=== PATIENT | male | born 2000 | race Caucasian/White ===

== ENCOUNTER 2023-11-23 17:01 | Emergency (ER) | payer OTHER, SELFPAY ==
[2023-11-23 17:03] VITALS: BP 138/75; PULSE 92; RESP 16; TEMP 35.5; O2SAT 97; BMI 26.2
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
--- NOTE | 2023-11-23 17:46 | ED.RN ---
pts parents here in room at bedside. spo2 97% on ra. pt smiling and joking some with family. call light at bedside.
[2023-11-23 19:50] VITALS: BP 138/75; PULSE 61; RESP 13; TEMP 36.6; O2SAT 100
--- NOTE | 2023-11-23 19:51 | ED.RN ---
PT GIVEN WORK NOTE. PER DR. MCMANUS, PATIENT CAN RETURN TO WORK 11/24/23
== END 2023-11-23 19:52 | disposition home or self-care (01) ==
PROVIDERS: Emergency Provider Emergency Medicine; Visit Provider Emergency Medicine
DX: S09.90XA Unspecified injury of head, initial encounter (principal); S16.1XXA Strain of muscle, fascia and tendon at neck level, initial encounter; V89.2XXA Person injured in unspecified motor-vehicle accident, traffic, initial encounter; S40.012A Contusion of left shoulder, initial encounter
CPT/HCPCS: 70450; 71045; 72125; 73030; 99283

== ENCOUNTER 2024-01-09 13:33 | Emergency (ER) | payer OTHER, SELFPAY ==
[2024-01-09 13:35] VITALS: BP 136/98; BP 146/94; PULSE 89; PULSE 92; RESP 16; RESP 18; TEMP 36.8; O2SAT 98; O2SAT 99; BMI 25.4
[2024-01-09] MEDS: Lidocaine 1% (20 ml mdv) 20 ML Vial INFILT (14:19)
[2024-01-09] MEDS: Diphth,Pertuss(Acell),Tet Vac 0.5 ML Vial IM (14:19)
--- NOTE | 2024-01-09 14:30 | RAD_ITS ---
STUDY: X-RAY - RIGHT HAND REASON FOR EXAM: Male, 23 years old. Laceration of the index finger. TECHNIQUE: 3 view(s) of the hand. COMPARISON: None. FINDINGS: Normal radiocarpal articulation. Normal distal radioulnar joint. Normal visualized carpal bones. Normal carpal articulations Normal carpometacarpal articulation of the thumb. Normal second through fifth carpometacarpal joints. Normal metacarpi. Normal metacarpophalangeal joint of the thumb. Normal interphalangeal joint of the thumb. Normal proximal and distal phalanges of the thumb. Normal metacarpophalangeal joints of the second through fifth fingers. Normal proximal and distal interphalangeal joints of the second through fifth fingers. Normal phalanges of the second through fifth fingers. The soft tissue structures are unremarkable. RAD/Hand Min 3 Views IMPRESSION: Normal x-ray examination of the hand. Electronically Signed: Sanket Calderon MD at 14:44 EDT ,
[2024-01-09 14:35] VITALS: BP 134/88; PULSE 88; RESP 14; O2SAT 98
[2024-01-09 15:00] VITALS: BP 108/67; PULSE 88; RESP 14; O2SAT 99
--- NOTE | 2024-01-09 15:18 | EX.ED.UPPERE ---
HPI History of Present Illness Chief Complaint: Laceration Informant: patient Onset/Context/Timing Onset: Today Narrative Narrative: Patient present secondary to right thumb laceration. He was at work throwing away a car hubbard when it slipped and cut him in the right thumb. He is left-hand dominant. He is unsure of his last tetanus update. [facility] Medical History unable to obtain no medical history Home Medications ?Medication ?Instructions ?Recorded ?Last Taken ?Type NK 11/23/23 Unknown History Allergy/AdvReac Type Severity Reaction Status Date / Time cefdinir (From Omnicef) Allergy Mild Rash Verified 11/23/23 17:02 Family History Grandfather Diabetes Surgical History no surgical history Social History Smoking Status: Never smoker ROS ROS ED Constitutional Constitutional ED: Denies chills or fever(s) ENT ENT ED: Denies rhinorrhea Cardiovascular Cardiovascular: Denies chest pain Respiratory/Chest Respiratory/Chest: Denies cough Gastrointestinal Gastrointestinal: Denies abdominal pain, nausea or vomiting Musculoskeletal Musculoskeletal: Reports extremity pain; Denies back pain Integumentary Denies Abrasions or rash Neurologic Neurologic: Denies headache(s), paresthesias or weakness Psychiatric Psychiatric: Denies anxiety or depression Allergic/Immunologic Allergic/Immunologic ED: Denies lip swelling or urticaria EXAM Physical Exam Const Vital Signs: 01/09/24 13:35 01/09/24 13:35 01/09/24 14:35 Temperature 98.3 F Temperature Source Temporal Pulse Rate 92 89 88 Respiratory Rate 18 16 14 Blood Pressure 146/94 H 136/98 H 134/88 H Blood Pressure Mean 111 110 103 Pulse Ox 99 98 98 Oxygen Delivery Method Room Air Room Air Room Air 01/09/24 15:00 Temperature Temperature Source Pulse Rate 88 Respiratory Rate 14 Blood Pressure 108/67 Blood Pressure Mean 80 Pulse Ox 99 Oxygen Delivery Method Room Air Positive well nourished and well developed General Appearance ED: well developed HEENT Reports moist mucous membranes Eyes EOMs intact bilaterally Chest Wall inspection of chest normal and palpation of chest normal Resp normal respiratory effort and clear to auscultation bilaterally Cardio regular rate and regular rhythm GI non-tender Palpation: soft Extremity Extremity Narrative: Patient has 2 separate lacerations to the right thumb. There is a 7 cm laceration wrapping around the extensor side of the thumb. There is a smaller, 2 cm laceration just off the side of the nail. Nail itself is not lacerated. Patient has good cap refill distally. He can feel me touching the distal aspect of his thumb, but states the sensation is slightly altered. Neuro oriented x3, moves all extremities and no focal motor deficits MDM MDM MDM Narrative Medical decision making narrative: Right hand is soaked. Right hand x-rays are obtained to evaluate for any acute bony injury or radiopaque foreign body. Tetanus update provided. Radiography Diagnostic Testing: Clinical Impression(s) from Imaging Studies Hand X-Ray 01/09/24 14:30 IMPRESSION: Normal x-ray examination of the hand. Electronically Signed: Sanket Calderon MD at 14:44 EDT , Treatment and Re-Evaluation Narrative: Right hand x-ray per my interpretation reveals no acute bony injury. No radiopaque foreign body appreciated. Radiology interpretation reviewed and agrees. Digital block was performed with 5 cc 1% lidocaine. Patient receives good anesthesia. Wounds are cleansed and irrigated. The 7 cm laceration is closed with 10 simple interrupted sutures of 4-0 nylon. The 2 cm laceration is closed with 6 sutures of 4-0 nylon. Patient is able to get up and wash his hands. Dressing is applied. Patient will follow-up with corporate care in 3 to 5 days for wound check. He was given work restrictions and is have sutures removed in 7 to 10 days. Return instructions given. Discharge Plan Triage Chief Complaint: Laceration ED Provider: Falguni Ramos Dx/Rx/DC Orders Clinical Impression: Laceration of right thumb Instructions: ED Laceration, Hand: All Closures Prescriptions: No Action NK Stand Alone Forms: Work Status Form Primary Care Provider: CARLENE CASPER Referrals: CARLENE CASPER [Other] [facility] [Group of Physicians] - 3-5 Days Activity Restrictions/Additional Instructions: Follow-up with corporate care in 3 to 5 days for a wound check. He will also need follow-up in 7 to 10 days to have your stitches removed. Print Language: Serbian Disposition Disposition: Home, Self Care Discharge Date/Time: 01/09/24 16:02
[2024-01-09 16:01] VITALS: BP 113/63; PULSE 78; RESP 14; TEMP 36.6; O2SAT 99
== END 2024-01-09 16:02 | disposition home or self-care (01) ==
PROVIDERS: Emergency Provider Emergency Medicine; Visit Provider Emergency Medicine
DX: S61.011A Laceration without foreign body of right thumb without damage to nail, initial encounter (principal); W26.8XXA Contact with other sharp object(s), not elsewhere classified, initial encounter; Y93.89 Activity, other specified; Y99.0 Civilian activity done for income or pay; Z23 Encounter for immunization
CPT/HCPCS: 12004; 73130; 90471; 90715; 99284

== ENCOUNTER 2024-04-19 08:54 | Emergency (ER) | payer OTHER, SELFPAY ==
[2024-04-19 08:54] VITALS: BP 124/76; PULSE 86; RESP 16; TEMP 37; O2SAT 98; BMI 25.1
[2024-04-19 10:02] VITALS: BP 122/74; PULSE 87; RESP 16; TEMP 36.6; O2SAT 100
--- NOTE | 2024-04-19 10:13 | EDS_ITS ---
HPI History of Present Illness Chief Complaint: Laceration Informant: patient Narrative Narrative: 23-year-old male presenting to the emergency room with right hand laceration. Patient states that he was using a knife to cut some zip ties at work. He is left-handed. He states that the blade lacerated the dorsum of the right hand at the base of the thumb. He notes he still able to move his thumb. He notes bleeding. He notes he recently had a hand laceration when his tetanus is up-to-date. Tetanus Immunization: <5 years PFSH PFS Home Medications ?Medication ?Instructions ?Recorded ?Last Taken ?Type NK 11/23/23 Unknown History Allergy/AdvReac Type Severity Reaction Status Date / Time cefdinir (From Omnicef) Allergy Mild Rash Verified 04/19/24 08:54 Family History Grandfather Diabetes Social History Smoking Status: Never smoker ROS ROS ED Constitutional Constitutional ED: Denies chills, fever(s) or weight loss Eyes Eyes: Denies change in vision or diplopia ENT ENT ED: Denies ear pain, rhinorrhea or sore throat Cardiovascular Cardiovascular: Denies chest pain, orthopnea, palpitations or racing heartbeat Respiratory/Chest Respiratory/Chest: Denies cough, dyspnea or orthopnea Gastrointestinal Gastrointestinal: Denies abdominal pain, diarrhea, nausea or vomiting Genitourinary Genitourinary ED: Denies dysuria, hematuria or urinary frequency Musculoskeletal Musculoskeletal: Denies arthralgias or myalgias Integumentary Reports other Details: Hand laceration ; Denies abscess or rash Neurologic Neurologic: Denies headache(s) or weakness Psychiatric Psychiatric: Denies anxiety, depression, suicidal ideation or suicidal thoughts Endocrine Endocrinology: Denies polydipsia, polyphagia or polyuria Allergic/Immunologic Allergic/Immunologic ED: Denies mouth swelling, tongue swelling or urticaria EXAM Physical Exam Const Vital Signs: 04/19/24 08:54 04/19/24 10:02 Temperature 98.6 F 97.8 F Temperature Source Temporal Pulse Rate 86 87 Respiratory Rate 16 16 Blood Pressure 124/76 H 122/74 H Blood Pressure Mean 92 90 Pulse Ox 98 100 Oxygen Delivery Method Room Air Positive well nourished and well developed General Appearance ED: well developed and NAD HEENT Reports normocephalic, head/scalp atraumatic and moist mucous membranes Eyes PERRL and EOMs intact bilaterally Neck no lymphadenopathy, supple and no JVD Resp normal respiratory effort and clear to auscultation bilaterally Cardio regular rate, regular rhythm and no murmurs GI normal to inspection, nondistended, normoactive bowel sounds and non-tender Palpation: soft Back/Spine no CVA tenderness and normal ROM Extremity Extremity Narrative: There is a 3 cm right hand laceration located over the dorsal aspect at the base of the right thumb. Extensor mechanism is intact. The laceration appears just lateral to the actual tendon. Neurovascularly he is intact with excellent capillary refill and normal 2 point discrimination from right to left. There is mild venous bleeding. General Extremety ED: Negative for edema General Extremity: Negative for edema Neuro oriented x3, CN's II-XII intact bilaterally and moves all extremities Sensorium / Orientation: alert Motor Exam: strength 5/5 throughout Psych mental status grossly normal Mood & Affect: Negative for depressed or tearful Skin no rashes or lesions noted and no wounds MDM MDM MDM Narrative Medical decision making narrative: Differential diagnosis includes but not limited to cutaneous laceration tendon laceration neurovascular injury bony injury Wound was locally anesthetized using 1% lidocaine. Bleeding controlled through direct pressure. Wound was washed with Shur-Clens irrigated and explored. I do not appreciate any obvious tendon injury. A total of 5 simple interrupted 4-0 Ethilon sutures was used to close the wound edges. Good homeostasis was achieved. Wound was dressed with bacitracin Telfa and Anabel. Patient will need to limit use of the thumb to allow the stitches/laceration to heal. Stitches need to be removed in 10 days. Monitor for changes return if worsening or concerns History & Record Review Discussion w/independent historian: Patient Discharge Plan Triage Chief Complaint: Laceration ED Provider: Choco Sheppard Dx/Rx/DC Orders Clinical Impression: Laceration of hand, right Instructions: ED Laceration, Hand: All Closures Prescriptions: No Action NK Primary Care Provider: Carter Liu Referrals: Carter Liu MD [Primary Care Provider] - [facility] [Non-Staff] - 10 Day for suture removal Print Language: [place] Sudanese Disposition Disposition: Home, Self Care Discharge Date/Time: 10/31/24 10:05
== END 2024-04-19 10:05 | disposition home or self-care (01) ==
PROVIDERS: Emergency Provider Emergency Medicine; PCP Family Medicine; Visit Provider Emergency Medicine
DX: S61.411A Laceration without foreign body of right hand, initial encounter (principal); W26.0XXA Contact with knife, initial encounter; Y99.0 Civilian activity done for income or pay; Y92.89 Other specified places as the place of occurrence of the external cause
CPT/HCPCS: 12002; 99283